=== PATIENT | male | born 1955 | race Caucasian/White ===

== ENCOUNTER 2017-01-01 20:17 | Emergency (ER) | payer BC, OTHER ==
[~2017-01-01] VITALS: Ht 170.2 cm; Wt 74.0 kg
[~2017-01-01 20:17] MED LIST: BACT800T5 PO; DOXY100C PO; LANS15CA PO; LEVO50TA4 PO
[2017-01-01 20:25] VITALS: BP 161/87; PULSE 74; RESP 16; TEMP 98; O2SAT 97
--- NOTE | 2017-01-01 21:44 | PD ---
HPI Chief Complaint: Foreign Body Time Seen by Provider: 21:40 Travel History International Travel<30 days: Yes Contact w/Intl Traveler<30days: [place] Country Traveled to: [place] Traveled to known affect area: No History of Present Illness HPI 61-year-old male presents to the emergency department for complaint of foreign body sensation to the left eye. Symptoms have been present for 2 days. Last tetanus shot was in 2012. Patient denies any loss of vision to the eye. Patient states that he was near someone using a leaf blower a few days ago when symptoms began. Patient denies other concerns or complaints. Patient is not diabetic. Patient rates his pain 8/10 in intensity. Patient does not wear corrective lenses. PFSH Past Medical History Narrative Medical Kidney stones hypothyroidism; no tobacco use: Nursing notes reviewed Diminished Hearing: No GERD: Yes Kidney Stones: Yes Thyroid Disease: Yes ?: Not Past Surgical History Surgical History: No Previous Surgery Social History Alcohol Use: No Tobacco Use: No (quit 2 years ago) Substance Use: No Allergies-Medications (Allergen,Severity, Reaction): Coded Allergies: No Known Allergies (Unverified Adverse Reaction, Unknown, 01/01/17) Reported Meds & Prescriptions Reported Meds & Active Scripts Active Percocet (Oxycodone-Acetaminophen) 5-325 mg Tab 1 Tab PO Q6H PRN Erythromycin Opth Oint 5 Mg/Gm Oint 1 Applic LEFT EYE QID Reported Levothyroxine (Levothyroxine Sodium) 50 Mcg Tab 50 Mcg PO DAILY Review of Systems Except as stated in HPI: all other systems reviewed are Neg Physical Exam Narrative GENERAL: Well-developed well-nourished male in no acute distress no respiratory distress SKIN: Warm and dry. HEAD: Normocephalic. EYES: No scleral icterus. No injection or drainage. Pupils equal round reactive to light extraocular muscles intact while injection of the left eye with visible foreign body on the cornea at the 11 o'clock position near the pupil. No purulent drainage. No cloudiness of the cornea. No lid edema. NECK: Supple, trachea midline. No JVD or lymphadenopathy. Data Data Last Documented VS Vital Signs Date Time Temp Pulse Resp B/P (MAP) Pulse Ox O2 Delivery O2 Flow Rate FiO2 01/01/17 20:25 98.0 74 16 161/87 (111) 97 Orders Orders Proparacaine 0.5% Opth Soln (Alcaine 0.5 (01/01/17 21:45) Erythromycin 0.5% Opth Oint (Ilotycin 0. (01/01/17 22:15) MDM Medical Decision Making Medical Screen Exam Complete: Yes Emergency Medical Condition: Yes Medical Record Reviewed: Yes Differential Diagnosis Retained foreign body, corneal abrasion, ulceration, shingles, unlikely acute angle glaucoma Narrative Course Patient given drop of proparacaine to the left eye with fluorescein stain and wet Q-tip used to remove foreign body Diagnosis Primary Impression: Foreign body in cornea, left eye, initial encounter Referrals: Hansa Hwang MD 3 days Patient Instructions: General Instructions Additional Instructions: apply antibiotic eye ointment as prescribed Follow-up with enterprise manager Dr. Hwang on Wednesday to have foreign body removed from the cornea Apply cool compresses to the eye intermittently Do not rub your eye May use pain medication as prescribed as needed however pain medication may cause delay reaction time increased risk for fall and cause constipation May use ibuprofen/Advil/Motrin 600 mg as often as every 6-8 hours for pain associated with inflammation Return to the emergency department for any concerns or change in condition Med/Other Pt SpecificInfo: Prescription(s) given Scripts Oxycodone-Acetaminophen (Percocet) 5-325 mg Tab 1 TAB PO Q6H Y for PAIN, #10 TAB 0 Refills Prov: Yecenia Carranza MD 01/01/17 Erythromycin Opth Oint (Erythromycin Opth Oint) 5 Mg/Gm Oint 1 APPLIC LEFT EYE QID for Infection, #1 TUBE 0 Refills Prov: Yecenia Carranza MD 01/01/17 Disposition: 01 DISCHARGE HOME Condition: Stable Yecenia Carranza MD Jan 01, 2017 21:44
[2017-01-01] MEDS ORDERED: PROPARACAINE HCL 0.5% OPHT SOLN 15 ML BTL LEFT EYE ONE (21:45)
[2017-01-01] MEDS ORDERED: ERYTOIN10 LEFT EYE (22:10)
[2017-01-01] MEDS ORDERED: PERC5TAB12 PO ×2 (22:10→22:17)
[2017-01-01] MEDS ORDERED: ERYTHROMYCIN 0.5% OPTH OINT 3.5 GM TUBO LEFT EYE ONE (22:15)
== END 2017-01-01 22:27 | disposition home or self-care (01) ==
LOC: PHEFT 20:17
DX: T15.02XA Foreign body in cornea, left eye, initial encounter (principal); W20.8XXA Other cause of strike by thrown, projected or falling object, initial encounter
CPT/HCPCS: 99284